=== PATIENT | male | born 1980 | race Caucasian/White ===

== ENCOUNTER 2017-01-24 17:00 | Emergency (ER) | payer BC ==
[2017-01-24] MEDS ORDERED: Aspirin Low Dose CHEW TAB* 81 MG ONE (17:17)
[2017-01-24 17:26] VITALS: BP 167/91
[2017-01-25] MEDS ORDERED: Aspirin Low Dose CHEW TAB* 81 MG PO SCH (09:00)
--- NOTE | 2017-01-26 21:24 | UC ---
Syncope/New Syncope HPI - HPI Summary HPI Summary: 36 year old male presents with complains of weak and syncopal episode. I will send him to the ER for full cardiac workup. Dr Hu was called to take a glance at the EKG. - History Of Current Complaint Chief Complaint: UCDizziness Stated Complaint: FAINTING SPELLS Time Seen by Provider: 01/24/17 17:02 Hx Obtained From: Patient Onset/Duration: Lasting Days Timing: Constant Frequency: Episodes x___ - 2 Context: Witnessed Pain Intensity: 0 Pain Scale Used: 0-10 Numeric - Allergies/Home Medications Allergies/Adverse Reactions: Allergies Allergy/AdvReac Type Severity Reaction Status Date / Time Penicillins [PCN] Allergy Unknown Verified 01/24/17 17:26 Reaction Details Home Medications: Home Medications NK [No Home Medications Reported] 01/24/17 [History Confirmed 01/24/17] PMH/Surg Hx/FS Hx/Imm Hx Previously Healthy: Yes - Surgical History Surgical History: None - Social History Alcohol Use: Rare Substance Use Type: None Smoking Status (MU): Heavy Every Day Tobacco Smoker Type: Cigarettes Review of Systems Constitutional: Fatigue Skin: Negative Eyes: Negative ENT: Negative Respiratory: Negative Cardiovascular: Chest Pain Gastrointestinal: Negative Genitourinary: Negative Motor: Negative Neurovascular: Negative Musculoskeletal: Negative Neurological: Headache, Weakness Psychological: Negative All Other Systems Reviewed And Are Negative: Yes Physical Exam Triage Information Reviewed: Yes Vital Signs: Initial Vital Signs Temp 36.6 C 01/24/17 17:20 Pulse 71 01/24/17 17:20 Resp 15 01/24/17 17:20 BP 167/91 01/24/17 17:20 Pulse Ox 100 01/24/17 17:20 Vital Signs Reviewed: Yes Eye Exam: Normal ENT Exam: Normal Dental Exam: Normal Neck exam: Normal Neck: Positive: 1 Respiratory Exam: Normal Cardiovascular Exam: Normal Abdominal Exam: Normal Musculoskeletal Exam: Normal Neurological Exam: Normal Psychological Exam: Normal Skin Exam: Normal Syncope Course/Dx - Differential Dx/Diagnosis Provider Diagnoses: CHEST PAIN. WEAKNESS. HEADACHE Discharge - Discharge Plan Condition: Guarded Disposition: AGAINST MEDICAL ADVICE Patient Education Materials: Chest Pain (ED) Referrals: Sheldon Rodgers PA [Primary Care Provider] -
== END 2017-01-24 17:50 | disposition left against medical advice (07) ==
LOC: UCEAST 17:00
DX: R07.89 Other chest pain (principal); R53.1 Weakness; R51 Headache; R55 Syncope and collapse; Z88.0 Allergy status to penicillin; F17.210 Nicotine dependence, cigarettes, uncomplicated
CPT/HCPCS: 93005; 99201; A9270-GY; G0463

== ENCOUNTER 2017-01-24 17:59 | Emergency (ER) | payer BC ==
[2017-01-24] MEDS ORDERED: NS 0.9% 1000 ML* 1,000 ML IV ONE (18:31)
[2017-01-24 18:50] LABS: Hematocrit 46 % (42-52); Hemoglobin 15.7 g/dl (14.0-18.0); Mean Corpuscular HGB Conc 34 g/dl (31-36); Mean Corpuscular Hemoglobin 30 pg (27-31); Mean Corpuscular Volume 86 fL (80-94); Mean Platelet Volume 8 um3 (7.4-10.4); Red Blood Count 5.32 10^6/ul (4.0-5.4); Red Cell Distribution Width 14 % (10.5-15); White Blood Count 7.6 10^3/ul (3.5-10.8)
[2017-01-24 19:24] LABS: Albumin 4.4 g/dL (3.2-5.2); BUN/Creatinine Ratio 11.8 (8-20); Calcium 9.4 mg/dL (8.6-10.3); EGFR African American 75.4 (>60); EGFR Non-African American 58.6 (>60); Globulin 2.6 g/dL (2-4); Total Bilirubin 1.5 mg/dL (0.2-1.0)
[2017-01-24 19:46] LABS: TSH (Thyroid Stimulating Horm) 1.32 mcIU/mL (0.34-5.60)
[2017-01-24 19:55] LABS: Urine Bacteria Absent (Absent); Urine Bilirubin Negative (Negative); Urine Glucose Negative (Negative); Urine Nitrite Negative (Negative)
--- NOTE | 2017-01-24 20:13 | RAD ---
INDICATION: Syncope COMPARISON: None TECHNIQUE: Noncontrast axial source images were acquired from the skull base to the vertex. FINDINGS: Ventricles/sulci: The ventricles and cisterns are normal in size and configuration for age. Brain parenchyma: There is no focal parenchymal finding, evidence of intracranial mass, or intracranial mass effect. Intracranial hemorrhage:None. Extra-axial spaces: There are no abnormal extra axial fluid collections or evidence of extra-axial mass. Calvarium: There is no calvarial fracture or other calvarial abnormality. Scalp: There is no evidence of scalp or extracalvarial soft tissue abnormality. Paranasal sinuses/mastoid: There is bilateral ethmoid sinus mucosal thickening. There is also sphenoid sinus mucosal thickening. The mastoid air cells are clear. Other: None. IMPRESSION: No acute intracranial findings. Sinusitis.
--- NOTE | 2017-01-24 20:48 | ED ---
Alessandro Jalloh Alfonso, scribed for Chloe Ramirez MD on 01/24/17 at 1840 . Syncope/Near Syncope - HPI Summary HPI Summary: This patient is a 36 year old M presenting to [facility] accompanied by girlfriend with a chief complaint of 3 syncopal episodes which all occurred 5 days ago. He reports not feeling well since. He states he felt lightheaded and fading out. The patient rates the pain 0/10 in severity. Symptoms aggravated by not eating often. Symptoms alleviated by spontaneous resolution. Patient reports head trauma (against the wall). Patient denies urinary frequency, fever, chills, cough, and headache. - History Of Current Complaint Chief Complaint: EDSyncope Time Seen by Provider: 01/24/17 18:31 Hx Obtained From: Patient Onset/Duration: Sudden Onset, Lasting Days - 5, Still Present Timing: Constant Associated Head Trauma: Yes Aggravating Factor(s): Other - not eating often Alleviating Factor(s): Spontaneous Resolution Associated Signs And Symptoms: Other - head trauma (against the wall). Patient denies urinary frequency, fever, chills, cough, and headache. Frequency: Episodes x___ - 3 - Allergies/Home Medications Allergies/Adverse Reactions: Allergies Allergy/AdvReac Type Severity Reaction Status Date / Time Penicillins [PCN] Allergy Unknown Verified 01/24/17 17:26 Reaction Details PMH/Surg Hx/FS Hx/Imm Hx Opthamlomology History: Denies: Hx Legally Blind EENT History: Denies: Hx Deafness Infectious Disease History: No Infectious Disease History: Denies: Traveled Outside the [place] in Last 30 Days - Family History Known Family History: Positive: Diabetes Negative: Cardiac Disease - Social History Alcohol Use: Rare Substance Use Type: Reports: None Smoking Status (MU): Heavy Every Day Tobacco Smoker Type: Cigarettes Review of Systems Negative: Fever, Chills Negative: Cough Negative: frequency Neurological: Other - head trauma, lightheaded Positive: Syncope. Negative: Headache All Other Systems Reviewed And Are Negative: Yes Physical Exam - Summary Physical Exam Summary: General: Well appearing, no pain distress Skin: Warm, Skin Color Reflects Adequate Perfusion, Dry Eyes: EOMI, RON ENT: Pharynx normal, TMs normal Neck: Supple, nontender Respiratory: CTA, breath sounds present, no rhonchi, no wheezes, no rales Cardiovascular: RRR, no murmur, no rub, no gallop Abdomen: Soft, nontender, Non-distended, no guarding, no rebound Bowel: Present Musculoskeletal: NOLBERTO, No edema Neuro: Sensory/motor intact, A&Ox3, CN intact 2-12, GCS: 15 Psych: Affect/mood appropriate Triage Information Reviewed: Yes Vital Signs On Initial Exam: Initial Vitals Temp Pulse Resp BP Pulse Ox 97.6 F 68 18 148/88 99 01/24/17 18:01 01/24/17 18:01 01/24/17 18:01 01/24/17 18:01 01/24/17 18:01 Vital Signs Reviewed: Yes Diagnostics - Vital Signs Vital Signs Temp Pulse Resp BP Pulse Ox 01/24/17 18:01 97.6 F 68 18 148/88 99 - Laboratory Lab Results: Lab Results 01/24/17 01/24/17 01/24/17 Range/Units 18:41 18:41 18:41 WBC 7.6 (3.5-10.8) 10^3/ul RBC 5.32 (4.0-5.4) 10^6/ul Hgb 15.7 (14.0-18.0) g/dl Hct 46 (42-52) % MCV 86 (80-94) fL MCH 30 (27-31) pg MCHC 34 (31-36) g/dl RDW 14 (10.5-15) % Plt Count 193 (150-450) 10^3/ul MPV 8 (7.4-10.4) um3 Neut % (Auto) 60.0 (38-83) % Lymph % (Auto) 26.8 (25-47) % [place] % (Auto) 6.0 (1-9) % Eos % (Auto) 6.5 H (0-6) % Baso % (Auto) 0.7 (0-2) % Absolute Neuts (auto) 4.6 (1.5-7.7) 10^3/ul Absolute Lymphs (auto) 2.0 (1.0-4.8) 10^3/ul Absolute Monos (auto) 0.5 (0-0.8) 10^3/ul Absolute Eos (auto) 0.5 (0-0.6) 10^3/ul Absolute Basos (auto) 0 (0-0.2) 10^3/ul Absolute Nucleated RBC 0.01 10^3/ul Nucleated RBC % 0.1 Sodium 137 (133-145) mmol/L Potassium 4.0 (3.5-5.0) mmol/L Chloride 104 (101-111) mmol/L Carbon Dioxide 28 (22-32) mmol/L Anion Gap 5 (2-11) mmol/L BUN 16 (6-24) mg/dL Creatinine 1.36 H (0.67-1.17) mg/dL Est GFR ( Amer) 75.4 (>60) Est GFR (Non-Af Amer) 58.6 (>60) BUN/Creatinine Ratio 11.8 (8-20) Glucose 88 (70-100) mg/dL Lactic Acid 0.6 (0.5-2.0) mmol/L Calcium 9.4 (8.6-10.3) mg/dL Magnesium 2.0 (1.9-2.7) mg/dL Total Bilirubin 1.50 H (0.2-1.0) mg/dL AST 23 (13-39) U/L ALT 26 (7-52) U/L Alkaline Phosphatase 66 (34-104) U/L Troponin I 0.00 (<0.04) ng/mL Total Protein 7.0 (6.4-8.9) g/dL Albumin 4.4 (3.2-5.2) g/dL Globulin 2.6 (2-4) g/dL Albumin/Globulin Ratio 1.7 (1-3) TSH 1.32 (0.34-5.60) mcIU/mL Urine Color Urine Appearance Urine pH (5-9) Ur Specific [place] (1.010-1.030) Urine Protein (Negative) Urine Ketones (Negative) Urine Blood (Negative) Urine Nitrate (Negative) Urine Bilirubin (Negative) Urine Urobilinogen (Negative) Ur Leukocyte Esterase (Negative) Urine WBC (Auto) (Absent) Urine RBC (Auto) (Absent) Urine Bacteria (Absent) Urine Glucose (Negative) 01/24/17 Range/Units 19:35 WBC (3.5-10.8) 10^3/ul RBC (4.0-5.4) 10^6/ul Hgb (14.0-18.0) g/dl Hct (42-52) % MCV (80-94) fL MCH (27-31) pg MCHC (31-36) g/dl RDW (10.5-15) % Plt Count (150-450) 10^3/ul MPV (7.4-10.4) um3 Neut % (Auto) (38-83) % Lymph % (Auto) (25-47) % [place] % (Auto) (1-9) % Eos % (Auto) (0-6) % Baso % (Auto) (0-2) % Absolute Neuts (auto) (1.5-7.7) 10^3/ul Absolute Lymphs (auto) (1.0-4.8) 10^3/ul Absolute Monos (auto) (0-0.8) 10^3/ul Absolute Eos (auto) (0-0.6) 10^3/ul Absolute Basos (auto) (0-0.2) 10^3/ul Absolute Nucleated RBC 10^3/ul Nucleated RBC % Sodium (133-145) mmol/L Potassium (3.5-5.0) mmol/L Chloride (101-111) mmol/L Carbon Dioxide (22-32) mmol/L Anion Gap (2-11) mmol/L BUN (6-24) mg/dL Creatinine (0.67-1.17) mg/dL Est GFR ( Amer) (>60) Est GFR (Non-Af Amer) (>60) BUN/Creatinine Ratio (8-20) Glucose (70-100) mg/dL Lactic Acid (0.5-2.0) mmol/L Calcium (8.6-10.3) mg/dL Magnesium (1.9-2.7) mg/dL Total Bilirubin (0.2-1.0) mg/dL AST (13-39) U/L ALT (7-52) U/L Alkaline Phosphatase (34-104) U/L Troponin I (<0.04) ng/mL Total Protein (6.4-8.9) g/dL Albumin (3.2-5.2) g/dL Globulin (2-4) g/dL Albumin/Globulin Ratio (1-3) TSH (0.34-5.60) mcIU/mL Urine Color Yellow Urine Appearance Clear Urine pH 7.0 (5-9) Ur Specific [place] 1.025 (1.010-1.030) Urine Protein Negative (Negative) Urine Ketones Negative (Negative) Urine Blood Negative (Negative) Urine Nitrate Negative (Negative) Urine Bilirubin Negative (Negative) Urine Urobilinogen Negative (Negative) Ur Leukocyte Esterase Trace H (Negative) Urine WBC (Auto) Absent (Absent) Urine RBC (Auto) Absent (Absent) Urine Bacteria Absent (Absent) Urine Glucose Negative (Negative) Result Diagrams: 01/24/17 18:41 01/24/17 18:41 Lab Statement: Any lab studies that have been ordered have been reviewed, and results considered in the medical decision making process. - CT Brain CT Interpretation Completed By: Radiologist - No acute intracranial findings. Sinusitis. ED physician has reviewed this radiology report and agrees. Course/Dx Course Of Treatment: 36 yo male with syncopal episode, has sl elevated nursing aide and admits to chronically not drinking enough. urine sl dark in appearance,ct brain neg and ekg neg - Diagnoses Provider Diagnoses: Syncope Discharge - Discharge Plan Condition: Stable Disposition: HOME The documentation as recorded by the Alessandro rodriguez Alfonso accurately reflects the service I personally performed and the decisions made by me, Chloe Ramirez MD.
[2017-01-25 06:32] VITALS: BP 142/83
== END 2017-01-24 21:20 | disposition home or self-care (01) ==
LOC: ED 17:59
DX: R55 Syncope and collapse (principal); S09.90XA Unspecified injury of head, initial encounter; W22.8XXA Striking against or struck by other objects, initial encounter; Y93.9 Activity, unspecified; Y92.9 Unspecified place or not applicable; J32.9 Chronic sinusitis, unspecified; Z88.0 Allergy status to penicillin; F17.210 Nicotine dependence, cigarettes, uncomplicated
CPT/HCPCS: 36415; 70450; 80053; 81003; 81015; 83605; 83735; 84443; 84484; 85025; 87086; 93005; 99283

== ENCOUNTER 2017-07-21 10:57 | Emergency (ER) | payer BC ==
[2017-07-21 11:05] VITALS: BP 149/95
[2017-07-21] MEDS ORDERED: Tetan/Diph/Pertus SYR(Tdap)* 0.5 ML SYR(BOOSTRIX) use SYR IM ONE (11:24)
--- NOTE | 2017-07-21 11:49 | RAD ---
Indication: Left hand pain. 4 views of left hand demonstrates no fracture. No other bone or joint abnormality is identified. No joint effusion is noted. No radiopaque foreign body is identified. IMPRESSION: No fracture of left hand is noted.
--- NOTE | 2017-07-21 12:04 | UC ---
Hand/Wrist HPI - HPI Summary HPI Summary: Yesterday patient expresses superficial skin avulsion to his left third finger. Today he's got pain and an erythema around toward his hand. Patient believes he might have cut it on an old freezer handle. Patient has full range of motion pain is managed well with ibuprofen - History Of Current Complaint Chief Complaint: UCUpperExtremity Stated Complaint: HAND COMPLAINT Time Seen by Provider: 07/21/17 11:09 Hx Obtained From: Patient - she will ?: No Onset/Duration: Sudden Onset Severity Initially: Moderate Severity Currently: Moderate Pain Intensity: 7 Pain Scale Used: 0-10 Numeric Character Of Pain: Aching Alleviating Factor(s): OTC Meds Associated Signs And Symptoms: Positive: Swelling, Redness Related History: Dominant Hand Right - Allergies/Home Medications Allergies/Adverse Reactions: Allergies Allergy/AdvReac Type Severity Reaction Status Date / Time Penicillins Allergy Unknown Verified 07/21/17 11:06 Reaction Details Home Medications: Home Medications Ibuprofen 400 mg PO Q6HR PRN 07/21/17 [History Confirmed 07/21/17] PMH/Surg Hx/FS Hx/Imm Hx Previously Healthy: Yes - Surgical History Surgical History: None - Family History Known Family History: Positive: Diabetes Negative: Cardiac Disease - Social History Occupation: Employed Full-time Lives: With Family Alcohol Use: Rare Substance Use Type: None Smoking Status (MU): Heavy Every Day Tobacco Smoker Type: Cigarettes Review of Systems Constitutional: Negative Skin: Other - Erythema proximal left third finger with some swelling Eyes: Negative ENT: Negative Respiratory: Negative Cardiovascular: Negative Gastrointestinal: Negative Genitourinary: Negative Motor: Negative Neurovascular: Negative Musculoskeletal: Negative Neurological: Negative Psychological: Negative Is Patient Immunocompromised?: No All Other Systems Reviewed And Are Negative: Yes Physical Exam Triage Information Reviewed: Yes Appearance: Well-Appearing, No Pain Distress, Well-Nourished Vital Signs: Initial Vital Signs Temp 97.5 F 07/21/17 11:01 Pulse 67 07/21/17 11:01 Resp 18 07/21/17 11:01 BP 149/95 07/21/17 11:01 Pulse Ox 99 07/21/17 11:01 Vital Signs Reviewed: Yes Eye Exam: Normal Eyes: Positive: Conjunctiva Clear ENT Exam: Normal ENT: Positive: Normal ENT inspection, Hearing grossly normal. Negative: Trismus , Muffled voice, Hoarse voice, Sinus tenderness Dental Exam: Normal Neck exam: Normal Neck: Positive: Supple, Nontender Respiratory Exam: Normal Respiratory: Positive: Chest non-tender, No respiratory distress, No accessory muscle use Cardiovascular Exam: Normal Cardiovascular: Positive: RRR, Pulses Normal, Brisk Capillary Refill Musculoskeletal Exam: Normal Musculoskeletal: Positive: Strength Intact, ROM Intact, Edema @ - Proximal left third finger Neurological Exam: Normal Neurological: Positive: Alert, Muscle Tone Normal Psychological Exam: Normal Psychological: Positive: Normal Response To Family Skin Exam: Normal - 3 mm diameter superficial skin avulsion left third finger proximally, Other Skin: Positive: Other Diagnostics - Radiology No standard instances Xray Interpretation: No Acute Changes Radiology Interpretation Completed By: ED Physician, Radiologist - No evidence of foreign body, no fracture Hand/Wrist Course/Dx - Course Course Of Treatment: Update tetanus, warm soaks, Tylenol ibuprofen Pain, doxycycline follow with pressure with PCP recheck: When necessary - Differential Dx/Diagnosis Provider Diagnoses: Cellulitis left third finger, update tetanus, elevated blood pressure without diagnosis of hypertension Discharge - Sign-Out/Discharge Documenting (check all that apply): Discharge - Discharge Plan Condition: Stable Disposition: HOME Prescriptions: DOXYcycline CAP(*) [DOXYcycline 100MG CAP(*)] 100 mg PO BID #14 cap Patient Education Materials: Diphtheria/Acellular Pertussis/Tetanus Booster Vaccine (By injection), Cellulitis (ED), Hypertension (ED), Warm Compress or Soak (ED) Referrals: Sheldon Rodgers PA [Primary Care Provider] - 1 Week - Billing Disposition and Condition Condition: STABLE Disposition: HOME
== END 2017-07-21 12:00 | disposition home or self-care (01) ==
LOC: UCEAST 10:57
DX: L03.012 Cellulitis of left finger (principal); Z23 Encounter for immunization; R03.0 Elevated blood-pressure reading, without diagnosis of hypertension; Z88.0 Allergy status to penicillin; F17.210 Nicotine dependence, cigarettes, uncomplicated
CPT/HCPCS: 90471; 90715; 99212; G0463

== ENCOUNTER 2018-09-25 08:08 | Day surgery (SDC) | payer BC ==
[~2018-09-25 08:08] MED LIST: Buffered Lidocaine 1% SYRIN* 1 ML/SYRINGE INTRADERM ONE; Dexamethasone IV* 4 MG/ML 1 ML (4 MG) IV SLOW PU ONE; Famotidine IV* 10 MG/ML 2 ML (20 mg) IV ONE; Lactated Ringers 1000 ML Bag* 1,000 ML IV SCH
[2018-09-25] MEDS ORDERED: Clindamycin 900 MG IVPREMIX(* 900 MG/50 ML SDV IV ONE (08:20)
[2018-09-25] MEDS ORDERED: Dexamethasone IV* 4 MG/ML 1 ML (4 MG) ONE (08:20)
[2018-09-25] MEDS ORDERED: Famotidine IV* 10 MG/ML 2 ML (20 mg) ONE (08:20)
[2018-09-25] MEDS ORDERED: fentaNYL* 50 MCG/ML 5 ML VIAL (250 MCG VIAL) ONE ×2 (09:37→10:38)
[2018-09-25] MEDS ORDERED: Propofol* 10 MG/ML 20 ML BTL ONE (09:37)
[2018-09-25] MEDS ORDERED: Ketorolac INJ* 30 MG/ML 1 ML VIAL ONE (09:37)
[2018-09-25] MEDS ORDERED: Rocuronium* 10 MG/ML VIAL ONE ×2 (09:37→10:40)
[2018-09-25] MEDS ORDERED: Ondansetron INJ* 2 MG/ML VIAL ONE (09:37)
[2018-09-25] MEDS ORDERED: Midazolam* 1 MG/ML 5 ML VIAL (5 MG) ONE (09:37)
[2018-09-25] MEDS ORDERED: Bupivacaine 0.25% EPI 200,000* 30 ML SDV ONE ×2 (09:48→12:07)
[2018-09-25] MEDS ORDERED: Lidocaine 2% PF * 5 ML VIAL ONE (09:48)
[2018-09-25] MEDS ORDERED: Sugammadex * 200 MG/2 ML VIAL IV PUSH ONE (10:03)
[2018-09-25] MEDS ORDERED: Glycopyrrolate IV* 0.2 MG/ML 1 ML VIAL ONE (10:25)
[2018-09-25] MEDS ORDERED: DiMENhydriNATE IV* 50 MG/ML VIAL IV PUSH PRN (10:43)
[2018-09-25] MEDS ORDERED: fentaNYL* 50 MCG/ML 2 ML VIAL (100 MCG VIAL) IV PRN (10:43)
[2018-09-25] MEDS ORDERED: oxyCODONE/Acetamin 5/325 MG* TAB PO PRN (10:43)
[2018-09-25] MEDS ORDERED: Ondansetron INJ* 2 MG/ML VIAL IV PRN (10:43)
[2018-09-25] MEDS ORDERED: Naloxone* 0.4 MG/ML 1 ML VIAL IV PRN (10:43)
[2018-09-25] MEDS ORDERED: Scopolamine 1.5 mg* PATCH TRANSDERM PRN (10:43)
--- NOTE | 2018-09-25 12:12 | BRIEFOPN ---
Brief Operative Note - Surgery Procedures: Pre-OP Diagnoses: Bilateral inguinal hernia Post-op Diagnosis: same Procedure: Laparoscopic bilateral hernia repair with mesh Surgeon: Sona Asst: Edward Bassthealeta: JACQUI Kelly EBL: minimal IVF: 1600cc LR Specimen: none Drains: none
[2018-09-25 13:18] VITALS: BP 128/85
--- NOTE | 2018-09-25 13:32 | OP ---
CC: Dr. Sheldon Sanon; [facility] OPERATIVE REPORT: DATE OF OPERATION: 09/25/18 DATE OF : 76 SURGEON: Carroll Magallanes MD SUPERVISOR DETASSELING CREW: Kaley Leon NP ANESTHESIOLOGIST: Dr. Adorno. ANESTHESIA: General anesthesia. PRE-OP DIAGNOSIS: Bilateral inguinal hernia, right greater than left. POST-OP DIAGNOSIS: Bilateral inguinal hernia. OPERATIVE PROCEDURE: Laparoscopic bilateral inguinal hernia repair with mesh. BLOOD LOSS: Less than 20 cc. IV FLUIDS: 1600 cc of lactated Ringer's given. SPECIMEN: None. DESCRIPTION OF PROCEDURE: The patient was identified in the preoperative area. He was marked, conse nt was signed. He was taken back to the operating room, placed on the operating table in supine posi tion. Preoperative antibiotics were given. Sequential devices were placed on bilateral lower extremi ties. General anesthesia was induced and the patient's abdomen was prepped and draped in standard bright rgical fashion. A time-out was performed. An infraumbilical incision was made. This was deepened down to the anterior fascia on the right. An incision was made on the fascia, but we could not find rectus muscle. At this point, I felt my inci sahra to the fascia was somewhat too high and approximately 1 cm inferior to this but also on the righ t we incised and the rectus pillar was identified and retracted laterally. This exposed the preperit saab plane, which was bluntly dissected and a 12 mm blunt trocar was inserted. This preperitoneal p staci was allowed to insufflate to a pressure of 12 mmHg. The camera was placed and blunt dissection was carried out to the pubic symphysis. Two additional 5 mm trocars were placed in the lower midline and this allowed further dissection to free up the preperitoneal plane. We did not enter the perito neum during any of the procedure. We cleared off Johnny's ligament both on the left and right. No direct hernia was identified on the right side. The epigastric vessels were maintained anteriorly and Bogros space was opened up lateral ly. At this point, we could see what appeared to be an indirect hernia sac extending towards the melly p ring. Blunt dissection was carried out here and it turned out to be a very large lipoma. Lipoma wa s dissected free in its entirety. Peritoneal reflection was bluntly dissected posteriorly. I tried to attempt to place the lipoma posteriorly and allowed for to sit but that was quite large. For this reason, we transected it and pulled it out through the 12 mm trocar site. Attention was then turned towards the left side and in similar fashion, Johnny's ligament was cleared off. No direct hernia was identified. The epigastric vessels maintained anteriorly and a Bogros sp jesus cleared up laterally. Similar findings were on this side with a large lipoma that was dissected in its entirety and removed. Peritoneal reflection bluntly dissected posteriorly and no significant hernia sac extended into the indirect space other than the very large lipoma. We then set off to place the meshes in. A large right-sided Bard 3DMax mesh was then inserted. It w as allowed to unfurl and it was placed over the full myopectineal orifice. Securestrap was used to t ack the Johnny's ligament. Once this tack was placed, a significant amount of bleeding was noted at this area. For this reason, the Securestrap was removed and the mesh placed off to the side with ___ ___ Johnny's that had been avulsed and cautery was used to stop bleeding. Hemostasis was excellent. Then we placed the mesh over the full orifice again and tacked it in appropriate fashion in Johnny's ligament and laterally. This mesh did cross the midline and did cover the deep ring. A left-sided mesh was placed in a similar fashion. The meshes did cross at the midline and this one was tacked at Johnny's ligament laterally and also tacked at the midline superior to the pubic tuberc le picking up both meshes. The preperitoneal plane was allowed to collapse. Trocars were removed un eduar direct vision and we closed both openings into the rectus fascia with an 0 Vicryl suture. The wou nd was irrigated. Hemostasis was achieved and all skin incisions were reapproximated with 4-0 Monocr yl subcuticular sutures followed by Steri-Strips and sterile dressing. The patient tolerated the pro cedure well, was woken up and transferred to PACU in stable condition. [id number]/[facility] #: [id number]
== END 2018-09-25 13:57 | disposition home or self-care (01) ==
LOC: OR 08:08
PROVIDERS: ATTEND Surgery
DX: K40.20 Bilateral inguinal hernia, without obstruction or gangrene, not specified as recurrent (principal); Z87.891 Personal history of nicotine dependence
CPT/HCPCS: C1776; C1781; J1100; J1885; J2250; J2405; J2704; J3010